=== PATIENT | male | born 1965 | race Caucasian/White ===

== ENCOUNTER → 2021-05-14 | Outpatient (CLI) | payer BC ==
--- NOTE | 2021-05-15 03:17 | MR ---
EXAMINATION TYPE: MR shoulder LT wo con DATE OF EXAM: 05/14/2021 COMPARISON: None HISTORY: Left shoulder pain and limited movement for years Multiplanar multiecho imaging of the left shoulder without contrast. There is some thickening of the supraspinatus tendon with increased signal over the top of the tony l head. There is no retraction. There is no full-thickness tear. There is spurring at the AC joint wi thout significant subacromial impingement. There is shoulder joint effusion. The biceps tendon is intact. There is some fluid around the biceps tendon. Subscapularis tendon is intact. There is mild deformity of the anterior glenoid labrum. There is osteoarthritic narrowing of the glenohumeral joint space. No fracture seen. IMPRESSION: There is intrasubstance tear of the supraspinatus tendon. No full-thickness tear. Mild shoulder joint effusion. Osteoarthritis of the glenohumeral joint. Deformity of the anterior glenoid labrum consist ent with old injury and arthritis. Mild spurring at the AC joint without significant subacromial impingement.
== END | disposition home or self-care (01) ==
LOC: RADMRIMAIN 19:15
PROVIDERS: ATTEND Orthopaedic Surgery
DX: M75.112 Incomplete rotator cuff tear or rupture of left shoulder, not specified as traumatic (principal); M25.412 Effusion, left shoulder; M19.012 Primary osteoarthritis, left shoulder; M25.712 Osteophyte, left shoulder; M21.822 Other specified acquired deformities of left upper arm